=== PATIENT | male | born 2000 | race Caucasian/White ===

== ENCOUNTER 2021-04-13 21:51 | Emergency (ER) | payer SELFPAY ==
[2021-04-13 21:56] VITALS: BP 168/103; PULSE 118; RESP 17; TEMP 36.7; O2SAT 100; BMI 22.5
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
[2021-04-13 22:35] VITALS: BP 154/92; PULSE 116; RESP 17; O2SAT 98
[2021-04-13] MEDS: tetanus-dipt-pertussis 0.5 mL SDV IM (22:36)
[2021-04-13] MEDS: ondansetron 2 mg/ML SDV 2 mL 4 MG IVP (22:36)
[2021-04-13] MEDS: HYDROmorphone 1 mg/mL INJ 1 mL IVP (22:36)
[2021-04-13] MEDS: sodium chloride 0.9% 1,000 ML 999 ML IV (22:37)
--- NOTE | 2021-04-13 23:04 | PC.NURSE ---
patient report received from BILLY Canales and care transferred to BILLY Meraz
[2021-04-13] MEDS: lidocaine 2% INJ 20 mL INJECTION (23:21)
[2021-04-13 23:30] VITALS: BP 173/110; PULSE 124; RESP 17; O2SAT 99
[2021-04-14 00:02] VITALS: BP 148/90; PULSE 79; RESP 16; O2SAT 99
== END 2021-04-14 00:07 | disposition home or self-care (01) ==
PROVIDERS: Emergency Provider Emergency Medicine
DX: S01.511A Laceration without foreign body of lip, initial encounter (principal); S02.5XXA Fracture of tooth (traumatic), initial encounter for closed fracture; S02.40CA Maxillary fracture, right side, initial encounter for closed fracture; S02.40DA Maxillary fracture, left side, initial encounter for closed fracture; S02.19XA Other fracture of base of skull, initial encounter for closed fracture; V86.56XA Driver of dirt bike or motor/cross bike injured in nontraffic accident, initial encounter; Z23 Encounter for immunization
CPT/HCPCS: 12013; 70450; 70486; 71045; 72125; 90471; 90715; 96361; 96374; 96375; 99284; 99291; J1170; J2405; J7030